=== PATIENT | female | born 1960 | race Caucasian/White ===

== ENCOUNTER 2020-01-14 08:48 | Day surgery (SDC) | payer BC, OTHER ==
[~2020-01-14] VITALS: Ht 152.4 cm; Wt 74.4 kg
--- NOTE | ~2020-01-14 | O ---
[facility] [place] [address] OPERATIVE REPORT Name: TOMMY IVAN Room #: DEP [facility].#: [id number] Admission: 01/14/20 Attend Phys: Zaheer Esquivel MD Discharge: 01/14/20 Date of : 62 Report #: [id number] THIS REPORT FOR: cc: Mikey Peralta MD,Mikey Esquivel,Zaheer Vasquez MD ~ CC: Kemal Esquivel DATE OF SERVICE: 01/14/2020 PREOPERATIVE DIAGNOSIS: Grade 4 internal and external hemorrhoid. Three main groups, one on the right, 2 on the left. POSTOPERATIVE DIAGNOSIS: Grade 4 internal and external hemorrhoid. Three main groups, one on the right, 2 on the left. PROCEDURES PERFORMED: Hemorrhoidectomy. Three groups for grade 4 prolapsing internal and external hemorrhoid. ANESTHESIA: General, prone position. COMPLICATIONS: None. ESTIMATED BLOOD LOSS: 10 mL. PROCEDURE NOTE: With the patient in the prone position under general anesthesia, timeout was performed. The patient did receive preoperative IV antibiotics. Marcaine was placed for perianal block. A 30 mL was injected circumferentially. The patient has extensive hemorrhoid circumferentially, large one on the right, 2 separate external and internal on the left. There is a small posterior external tag on the right. The large right hemorrhoid was performed first. The excess skin was excised. The skin was then lifted off the muscle. Internal hemorrhoid was then isolated and divided with Harmonic scissor. The external skin that was incised sharply was closed with 3-0 Vicryl in running fashion. The left anterior one was performed and then the left posterior one. This is performed in identical manner. Hemostasis was obtained without difficulty. No bleeding at the Harmonic scalpel side of the internal hemorrhoid. Gelfoam was placed. Mixture of Silvadene and 0.25% lidocaine was mixed and creating a slurry. The Gelfoam was placed inside that and then placed [facility] [address] [employer] [place] [address] OPERATIVE REPORT Name: MARZENATOMMY NEWBERRY Room #: DEP [facility].#: [id number] Admission: 01/14/20 Attend Phys: Zaheer Esquivel MD Discharge: 01/14/20 Date of : 62 Report #: [id number] in the anal canal. 4 x 4s, ABDs and tape were applied. The patient was awakened and taken to recovery room having tolerated the procedure well. By: 1543 1604 Zaheer Esquivel MD /nt
[~2020-01-14 08:48] MED LIST: ACYCLOVIR 400400 MG PO; CELECOXIB200 MG PO; DULOXETINE HCL30 MG PO; FISH OIL 1,001000 M2 PO; GABAPENTIN600 M1 PO; LISINOPRIL10 MG PO; MOBIC15 MG PO; NEURONTIN 300300 M1 PO; NEURONTIN300 MG PO; OMEPRAZOLE 20 M20 M1 PO; PHENTERMINE HCL15 MG PO; PREMARIN0.625 MG PO; ZOCOR 20 MG TAB20 M1 PO
[2020-01-14 09:29] LABS: HEMATOCRIT 39.7 % (37.0-47.0); HEMOGLOBIN 13.3 gm/dL (12.0-15.0)
[2020-01-14 10:04] VITALS: BP 129/70
--- NOTE | 2020-01-14 12:08 | H ---
[facility] [place] [address] HISTORY AND PHYSICAL Name: TOMMY IVAN Room #: 150-1 [facility] M.R.#: [id number] Admission: 01/14/20 Attend Phys: Zaheer Esquivel MD Discharge: Date of : 62 Report #: [id number] THIS REPORT FOR: cc: Mikey Peralta MD,Mikey Esquivel,Zaheer Vasquez MD ~ CC: Kemal Esquivel PREOPERATIVE DIAGNOSIS: Grade 4 prolapsing symptomatic hemorrhoid. HISTORY OF PRESENT ILLNESS: The patient is a 59-year-old who complains of having hemorrhoid issue since she had her last child, which was about 23 years ago. For the last 6 months, she is having increasing pain. She noticed a protrusion of the hemorrhoid, which is tender and the protrusion has stayed out. She notes it more on the left side. The patient does complain of occasionally bleeding. It depends on how hard the stools are. The blood is small and usually on the toilet paper as she wipes. She also feels that she is having trouble cleaning herself after a bowel movement. No itching. She does complain of burning. Her bowels are usually regular. There is some straining. The patient does eat quite a bit of fiber and drinks quite a bit of water. The patient was seen in the office and noted to have prolapsing internal and external hemorrhoids. She is recommended to have surgery. The patient's disease is too severe for office type procedure. The patient is being admitted for surgery. PAST MEDICAL HISTORY: High blood pressure, elevated cholesterol. MEDICATIONS: Acyclovir 400 mg twice a day, lisinopril 10 mg once a day, Premarin, simvastatin and Celebrex. PAST SURGICAL HISTORY: Tonsillectomy in 1966, appendectomy in 1976, carpal tunnel 2001 and hysterectomy 2006. The patient denies diabetes, denies heart disease, denies bleeding disorder, denies any history of blood clot. No history of lung disease, liver or kidney disease. FAMILY HISTORY: Mother and maternal grandmother have heart disease. There is diabetes that runs in the family, also high blood pressure. SOCIAL HISTORY: The patient works in insurance business. She does not smoke, occasionally drinks. REVIEW OF SYSTEMS: Unremarkable. No chest pain, shortness of breath, palpitation. No upper respiratory infection. No numbness or weakness. [facility] [address] [place] [address] HISTORY AND PHYSICAL Name: TOMMY IVAN Room #: 150-1 [facility]..#: [id number] Admission: 01/14/20 Attend Phys: Zaheer Esquivel MD Discharge: Date of : 62 Report #: [id number] PHYSICAL EXAMINATION: GENERAL: The patient is a well-developed female in no acute distress. HEENT: Pupils react to light, sore muscles are intact. NECK: Soft and supple, no masses. LUNGS: Clear to auscultation. HEART: Regular rate and rhythm. No murmur or gallop. ABDOMEN: Soft, nondistended, nontender. No mass, guarding. No ascites. Rectal exam shows a large external hemorrhoid with internal component that is prolapsed. No anal stenosis identified. The patient has large internal hemorrhoids on anoscopy exam. No fissure identified. EXTREMITIES: No cyanosis, clubbing, edema. IMPRESSION: The patient is a 59-year-old with a grade 4 hemorrhoid involving internal and external prolapsed hemorrhoid. The patient is having pain, difficulty cleaning herself and bleeding. The patient is recommended to undergo treatment for hemorrhoids. Prone position was discussed. Postop recovery was discussed and she understands there is significant amount of discomfort for several weeks after the surgery due to inflammation. The patient understands the risk of bleeding, infection. Narrowing of the inguinal canal. The patient wishes to proceed. <ELECTRONICALLY SIGNED> By: Zaheer Esquivel MD 01/14/20 1208 [id number] [id number] Zaheer Esquivel MD /nt
[2020-01-14] MEDS ORDERED: NORCO 5-325 TA1 EAC1 PO (12:09)
[2020-01-14 12:20] VITALS: BP 129/70
--- NOTE | 2020-01-14 14:00 | EKG ---
[facility] [place] [address] ELECTROCARDIOGRAM REPORT Name: TOMMY IVAN Room #: DEP [facility].#: [id number] Admission: 01/14/20 Attend Phys: Zaheer Esquivel MD Discharge: 01/14/20 Date of : 62 Report #: [id number] THIS REPORT FOR: cc: Mikey Peralta MD, Christopher B. MD Couchonnal, Luis F. MD ~ THIS REPORT FOR: //name// [facility] Test Date: 2020-01-14 Test Time: 09:15:52 Pat Name: TOMMY IVAN Department: Room: 150 1 Gender: F Precision Assembler: Renetta BARKER : 1960 Requested By: Marisol Aviles Order Number: [id number] MD: Eladio Montero Measurements Intervals [place] Rate: 60 P: 32 NE: 134 QRS: 5 QRSD: 84 T: 49 QT: 396 QTc: 396 Interpretive Statements Sinus rhythm Baseline wander in lead(s) I,II,aVR No previous ECG available for comparison Electronically Signed On 01-14-2020 13:59:02 CDT by Eladio Montero [email or web address] <ELECTRONICALLY SIGNED> By: Eladio Montero MD 01/14/20 1359 4 Eladio Montero MD /EPI
--- NOTE | 2020-01-15 14:07 | PATH ---
[facility] [address] [place] [address] PATHOLOGY RPT PROCEDURE Name: TOMMY IVAN Room #: DEP [facility] M.R.#: [id number] Admission: 01/14/20 Date of : 62 Discharge: 01/14/20 Report #: [id number] Path Case #: [id number] [facility] Accession Number: [id number] . 01 Material submitted: . hemorrhoids - HEMORRHOIDS . 01 Clinical history: . Bleeding hemorrhoid . 02 Diagnosis: Hemorrhoids, hemorrhoidectomy: - Markedly dilated and congested variceal veins within submucosa, consistent with hemorrhoids. - Overlying mucosa showing hyperkeratosis as well as reactive changes. (IUV:pit 01/15/2020) QTP 01/15/2020 1202 Local . 02 Electronically signed: . Janette Ferguson MD, Pathologist NPI- [id number] . 01 Gross description: . The specimen is received in formalin, labeled "Gelacio, Tomym, hemorrhoids" and consists of 4 segments of wrinkled pink-weber skin measuring between 0.8 x 0.5 x 0.3 cm and 3.0 x 1.7 x 1.0 cm. Sectioning reveals dilated spaces containing blood clot and senior outside sales representative sections are submitted in A1. (SDY; 01/14/2020) SYU/SYU 01/14/2020 1628 Local . 02 Pathologist provided ICD-10: K64.9 . 02 CPT . 580555 Specimen Comment: A courtesy copy of this report has been sent to [phone], [phone] Specimen Comment: [id number] Specimen Comment: Report sent to / DR RICH Performed at: [address], [place] [id number] MD Vicente Lund MD Phone: [phone] Performed at: [address] [id number] MD Janette Ferguson MD Phone: [phone]
== END 2020-01-14 13:33 | disposition home or self-care (01) ==
LOC: OR → TBA 08:50 → OR 10:12
PROVIDERS: Student in an Organized Health Care Education/Training Program
DX: K64.3 Fourth degree hemorrhoids (principal); I10 Essential (primary) hypertension; E78.00 Pure hypercholesterolemia, unspecified; Z98.890 Other specified postprocedural states; Z79.899 Other long term (current) drug therapy; Z90.49 Acquired absence of other specified parts of digestive tract; Z90.710 Acquired absence of both cervix and uterus; Z82.49 Family history of ischemic heart disease and other diseases of the circulatory system; Z83.3 Family history of diabetes mellitus
CPT/HCPCS: 50010; 50101; 50386; 50403; 52190; 56524; 62110; 62900; 70005

== ENCOUNTER 2020-01-16 16:11 | Emergency (ER) | payer BC, OTHER ==
[~2020-01-16] VITALS: Ht 152.4 cm; Wt 74.4 kg
[~2020-01-16 16:11] MED LIST changes: +NORCO 5-325 TA1 EAC1 PO
[2020-01-16 17:14] VITALS: BP 106/62
== END 2020-01-16 17:25 | disposition home or self-care (01) ==
LOC: ER 16:11
DX: K64.4 Residual hemorrhoidal skin tags (principal); K59.00 Constipation, unspecified; R42 Dizziness and giddiness; K21.9 Gastro-esophageal reflux disease without esophagitis; I10 Essential (primary) hypertension; E78.5 Hyperlipidemia, unspecified; F32.9 Major depressive disorder, single episode, unspecified; Z98.891 History of uterine scar from previous surgery; Z90.89 Acquired absence of other organs; Z90.711 Acquired absence of uterus with remaining cervical stump; Z90.49 Acquired absence of other specified parts of digestive tract; Z90.79 Acquired absence of other genital organ(s); Z79.899 Other long term (current) drug therapy